=== PATIENT | female | born 1990 | race Caucasian/White ===

== ENCOUNTER → 2018-01-21 | Outpatient (CLI) | payer OTHER ==
[~2018-01-21] VITALS: Ht 162.6 cm; Wt 72.5 kg
[~2018-01-21] MED LIST: REGLAN10 MG PO
== END | disposition home or self-care (01) ==
LOC: AMB 09:44
PROC: 0DJ08ZZ Inspection of Upper Intestinal Tract, Via Natural or Artificial Opening Endoscopic (ICD-10-PCS; principal; 2018-01-21)
DX: R06.6 Hiccough (principal); R11.10 Vomiting, unspecified